=== PATIENT | male | born 1995 | race American Indian/Alaskan Native ===

== ENCOUNTER 2016-08-29 11:20 | Emergency (ER) | payer SELFPAY ==
--- NOTE | 2016-08-29 11:46 | Emergency Department Report ---
Chief Complaint: Urogenital-Male Stated Complaint: POSSIBLE UTI,CHYLAMDIA Time Seen by Provider: 08/29/16 11:44 - HPI History of Present Illness: pt c/o penile dc x 1 day - ROS Review of Systems: + discharge - abd pain - Exam Physical Exam: pt looks well, non toxic no focal weakness MSE screening note: Focused history and physical exam performed. Due to findings the following was ordered: labs ED Disposition for MSE Condition: Stable
[2016-08-29 11:47] VITALS: BP 139/92
--- NOTE | 2016-08-29 15:49 | Emergency Department Report ---
ED Male HPI - General Chief complaint: Urogenital-Male Stated complaint: POSSIBLE UTI,CHYLAMDIA Time Seen by Provider: 08/29/16 11:44 Source: patient Mode of arrival: Ambulatory Limitations: No Limitations - History of Present Illness Initial comments: This is a 20-year-old male well-nourished with nontoxic or ill in appearance but presented to ED complaining of possible STD exposure and dysuria. Patient stated he has penile discharge that is yellowish in color x1day. Patient girlfriend is present at bedside and is being treated for possible STD exposure as well. Patient stated had a sexual unprotected sex 5 days ago prior with girlfriend having the symptoms. Patient denies any penile lesions or ulcers. Denies testicular pain or swelling. Denies abdominal/pelvic pain. Patient also c/o of dysuria. Patient Denies polyuria, foul order, chest pain, shortness of breath, fever, chills, headache nausea or vomiting. Patient denies any allergies. Denies past medical history. MD Complaint: penile discharge, dysuria -: Gradual, days(s) (1) Location: penis Radiation: none Severity: mild Consistency: constant Improves with: none Worsens with: none discharge, dysuria. denies: swelling, mass, rash, urinary retention, blood in urine, fever, nausea/vomiting, incontinence - Related Data Sexually active: Yes Previous Rx's Medication Instructions Recorded Last Taken Type Sulfamethoxazole/Trimethoprim 1 each PO BID #14 tablet 08/29/16 Unknown Rx [Bactrim DS TAB] Allergies Allergy/AdvReac Type Severity Reaction Status Date / Time No Known Allergies Allergy Unverified 08/29/16 11:43 ED Review of Systems ROS: Stated complaint: POSSIBLE UTI,CHYLAMDIA Other details as noted in HPI Constitutional: denies: chills, fever Eyes: denies: eye pain, eye discharge, vision change ENT: denies: ear pain, throat pain Respiratory: denies: cough, shortness of breath, wheezing Cardiovascular: denies: chest pain, palpitations Endocrine: no symptoms reported Gastrointestinal: denies: abdominal pain, nausea, diarrhea Genitourinary: denies: urgency, dysuria Musculoskeletal: denies: back pain, joint swelling, arthralgia Skin: denies: rash, lesions Neurological: denies: headache, weakness, paresthesias Psychiatric: denies: anxiety, depression Hematological/Lymphatic: denies: easy bleeding, easy bruising ED Past Medical Hx - Past Medical History Previous Medical History?: Yes Additional medical history: STD exposure - Surgical History Past Surgical History?: No - Social History Smoking Status: Current Every Day Smoker Substance Use Type: Non Opiate Pain - Medications Home Medications: Home Medications Medication Instructions Recorded Confirmed Last Taken Type Sulfamethoxazole/Trimethoprim 1 each PO BID #14 tablet 08/29/16 Unknown Rx [Bactrim DS TAB] ED Physical Exam - General Limitations: No Limitations General appearance: alert, in no apparent distress - Head Head exam: Present: atraumatic, normocephalic, normal inspection - Eye Eye exam: Present: normal appearance, PERRL, EOMI. Absent: scleral icterus, conjunctival injection, nystagmus, periorbital swelling, periorbital tenderness Pupils: Present: normal accommodation - ENT ENT exam: Present: normal exam, normal orophraynx, mucous membranes moist, TM's normal bilaterally, normal external ear exam - Neck Neck exam: Present: normal inspection, full ROM. Absent: tenderness, meningismus, lymphadenopathy, thyromegaly - Respiratory Respiratory exam: Present: normal lung sounds bilaterally. Absent: respiratory distress, wheezes, rales, rhonchi, stridor, chest wall tenderness, accessory muscle use, decreased breath sounds, prolonged expiratory - Cardiovascular Cardiovascular Exam: Present: regular rate, normal rhythm, normal heart sounds. Absent: bradycardia, tachycardia, irregular rhythm, systolic murmur, diastolic murmur, rubs, gallop - GI/Abdominal GI/Abdominal exam: Present: soft, normal bowel sounds. Absent: distended, tenderness, guarding, rebound, rigid, diminished bowel sounds - Rectal Rectal exam: Present: deferred - exam: Present: normal inspection. Absent: testicular tenderness, urethral discharge, scrotal swelling, vertical testicular lie External exam: Present: normal external exam. Absent: erythema, swelling, lesions, lacerations, ecchymosis, bleeding - Extremities Exam Extremities exam: Present: normal inspection, full ROM, normal capillary refill. Absent: tenderness, pedal edema, joint swelling, calf tenderness - Back Exam Back exam: Present: normal inspection, full ROM. Absent: tenderness, CVA tenderness (R), CVA tenderness (L), muscle spasm, paraspinal tenderness, vertebral tenderness, rash noted - Neurological Exam Neurological exam: Present: alert, oriented X3, CN II-XII intact, normal gait, reflexes normal - Psychiatric Psychiatric exam: Present: normal affect, normal mood - Skin Skin exam: Present: warm, dry, intact, normal color. Absent: rash ED Course Vital Signs 08/29/16 11:43 Temperature 98.2 F Pulse Rate 65 Respiratory 18 Rate Blood Pressure 139/92 O2 Sat by Pulse 100 Oximetry - Reevaluation(s) Reevaluation #1: 08/29/16 15:57 Patient is speaking in full sinus with no signs of distress noted. ED Medical Decision Making - Medical Decision Making ED course; this is a 20-year-old male that presents with possible STD exposure and UTI 1-UA has been obtained in the ED. Gonorrhea/chlamydia has been obtained and sent to lab. Patient was instructed to follow up in 5 days at medical records to obtain results of gonorrhea/chlamydia. 2- patient received Rocephin and azithromycin in the ED. 3- patient was instructed to follow-up with her primary care doctor in 3-5 days or if symptoms such as increased penile discharge, testicular pain, particular swelling, fever, chills, chest pain, shortness of breath, abd pain or pelvic pain return to emergency room as was possible. 4- at time time of discharge, the patient does not seem toxic or ill in appearance. No acute signs of distress noted. Patient agrees to discharge treatment plan of care. No further questions noted by the patient. 5- patient received bactrim x7 days Critical care attestation.: If time is entered above; I have spent that time in minutes in the direct care of this critically ill patient, excluding procedure time. ED Disposition Clinical Impression: Possible exposure to STD UTI (urinary tract infection) Qualifiers: Urinary tract infection type: site unspecified Hematuria presence: with hematuria Qualified Code(s): N39.0 - Urinary tract infection, site not specified ; R31.9 - Hematuria, unspecified Disposition: -01 TO HOME OR SELFCARE Is pt being admited?: No Does the pt Need Aspirin: No Condition: Stable Instructions: Safe Sex (ED), Urinary Tract Infection in Men (ED), Sulfamethoxazole/Trimethoprim (By mouth) Additional Instructions: follow-up with her primary care doctor in 3-5 days or if symptoms such as increased penile discharge, testicular pain, particular swelling, fever, chills , chest pain, shortness of breath, abd pain or pelvic pain return to emergency room as was possible. Return in 5 days to medical records to obtain results of gonorrhea/chlamydia. Prescriptions: Sulfamethoxazole/Trimethoprim [Bactrim DS TAB] 1 each PO BID #14 tablet Referrals: PRIMARY CAREMD [Primary Care Provider] - 3-5 Days TITO PAREDES JR, MD [Staff Physician] - 3-5 Days [facility] [Outside] - 3-5 Days [facility] [place]Note 3[facility] [Outside] - 3-5 Days Forms: Work/School Release Form(ED)
[2016-08-29 16:22] LABS: Bilirubin,Urine NEG (Negative); Blood,Urine SM (Negative); Ketones,Urine NEG (Negative); Leukocyte Esterase,Urine LG (Negative); Mucus,Urine FEW /HPF; Nitrite,Urine NEG (Negative); Protein,Urine <15 mg/dL mg/dL (Negative); Urobilinogen,Urine < 2.0 mg/dL (<2.0)
[2016-08-29 16:24] LABS: WBC,Urine > 182.0 /HPF (0.0-6.0)
[2016-08-29] MEDS ORDERED: XYLOCAINE 1% MPF 5 mL INFILTRATI ONE (16:35)
[2016-08-29] MEDS ORDERED: ROCEPHIN IM ONE (16:35)
[2016-08-29] MEDS ORDERED: ZITHROMAX PO ONE (16:35)
== END 2016-08-29 16:58 | disposition home or self-care (01) ==
LOC: ED 11:20
DX: N39.0 Urinary tract infection, site not specified (principal); R31.9 Hematuria, unspecified; F17.200 Nicotine dependence, unspecified, uncomplicated
CPT/HCPCS: 81001; 87591; 96372; 99283; J0696